=== PATIENT | female | born 1995 | race Caucasian/White ===

== ENCOUNTER → 2017-04-03 | Outpatient (CLI) | payer OTHER ==
--- NOTE | 2017-04-03 13:24 | Diagnostic Imaging Report ---
PROCEDURE: US Gallbladder. TECHNIQUE: Multiple real-time grayscale images were obtained over the right upper quadrant in various projections. INDICATION: Abdominal pain. FINDINGS: The pancreas appears unremarkable. The liver is fairly homogeneous with no focal lesion seen. There is hepatopetal flow seen in the portal vein. The CBD is 3 mm in caliber. The gallbladder demonstrates no stones or wall thickening. Sonographic Cortez sign is reportedly negative. The right kidney is 12.1 cm in length. No hydronephrosis or focal lesion. No fluid collection seen in the upper right abdomen. IMPRESSION: Unremarkable exam. Dictated by: Dictated on workstation # [id number]
== END ==
LOC: RAD 08:37
PROVIDERS: ATTEND Internal Medicine
DX: R10.13 Epigastric pain (principal)
CPT/HCPCS: 76705

== ENCOUNTER → 2017-04-19 | Outpatient (CLI) | payer OTHER ==
[~2017-04-19] MED LIST: CATHETER FLUSH 10 ML SYR IV PRN
--- NOTE | 2017-04-19 12:47 | Diagnostic Imaging Report ---
The EXAMINATION: HIDA with EF measurements Indication: Abdominal pain TECHNIQUE: After the intravenous administration of 5 mCi of Tc 99m Choletec, imaging over the abdomen was obtained. This was followed by administration of Ensure orally to stimulate intrinsic CCK secretion, followed by continued imaging with ejection fraction measured. FINDINGS: There is homogeneous uptake in the liver with prompt bile duct and gallbladder filling seen. Bowel activity is seen at 15 minutes. Based on further imaging and gallbladder area of interest activity measurements after the administration of Ensure, the gallbladder ejection fraction is estimated at 25%. IMPRESSION: 1. Normal hepatobiliary uptake and Gallbladder filling. 2. Biliary dyskinesia. Reduced gallbladder ejection fraction. Dictated by: Dictated on workstation # [id number]
== END ==
LOC: CARD 10:03
PROVIDERS: ATTEND Internal Medicine
DX: I10 Essential (primary) hypertension (principal); R07.9 Chest pain, unspecified; R06.02 Shortness of breath; M79.89 Other specified soft tissue disorders
CPT/HCPCS: 78227

== ENCOUNTER 2017-05-25 08:34 | Day surgery (SDC) | payer OTHER ==
[~2017-05-25] VITALS: Ht 157.5 cm; Wt 73.9 kg
[2017-05-25 09:00] VITALS: BP 121/87
[2017-05-25] MEDS ORDERED: metroNIDAZOLE 500 MG/100 ML IVPB (PRE-MIX) IV ONE (09:00)
[2017-05-25] MEDS ORDERED: FAMOTIDINE 20MG/2ML IV (PEPCID) IV ONE (09:00)
[2017-05-25] MEDS ORDERED: ceFAZolin 1 GM/NS 50 ML IVPB IV ONE ×2 (09:00)
[2017-05-25] MEDS ORDERED: BUP/EPI 0.5% 1:200,000 (MARCAINE) 10ML VIAL IJ ONE (09:06)
[2017-05-25 09:10] LABS: MEAN PLATELET VOLUME 10.3 FL (7.4-10.4); RED BLOOD COUNT 4.71 10^6/uL (4.35-5.85); RED CELL DISTRIBUTION WIDTH 13.7 % (10.0-14.5)
[2017-05-25] MEDS: LACTATED RINGERS 1,000 ML IV PRN ×2 (09:18→10:36)
[2017-05-25] MEDS ORDERED: fentaNYL INJECTION 100 MCG/2 ML AMP ONE ×2 (09:26→10:25)
[2017-05-25] MEDS ORDERED: SEVOFLURANE (ULTANE) 15 ML INHAL SOLN ONE ×4 (09:26→10:27)
[2017-05-25] MEDS ORDERED: proPOfol 200 MG/20 ML (DIPRIVAN) VIAL IV ONE (09:26)
[2017-05-25] MEDS ORDERED: LIDOCAINE PF 2% 5 ML (XYLOCAINE) VIAL ONE (09:26)
[2017-05-25] MEDS ORDERED: DEXAMETHASONE 10 MG/ML (DECADRON) 1 ML VIAL ONE (09:26)
[2017-05-25] MEDS ORDERED: MIDAZOLAM 2 MG/2 ML (VERSED) VIAL ONE (09:26)
[2017-05-25] MEDS ORDERED: ONDANSETRON 4 MG/2 ML (SDV) Z0FRAN ONE (09:26)
--- NOTE | 2017-05-25 09:40 | Progress Note-Pre Operative ---
Pre-Operative Progress Note H&P Reviewed The H&P was reviewed, patient examined and no changes noted. Date Seen by Provider: May 10, 2017 Time Seen by Provider: 11:20 Date H&P Reviewed: May 25, 2017 Time H&P Reviewed: 09:40 Pre-Operative Diagnosis: GB Dyskinesia VINCENT CHAN MD May 25, 2017 9:40 am
[2017-05-25] MEDS ORDERED: PHENYLEPHRINE 100 MCG/ML 10 ML (ANESTHESIA) SYR ONE (10:22)
[2017-05-25] MEDS ORDERED: NEOSTIGMINE (BLOXIVERZ ) 1 MG/1ML 10 ML VIAL ONE (10:23)
[2017-05-25] MEDS ORDERED: ROCURONIUM 50 MG/5 ML (ZEMURON) VIAL IV ONE (10:23)
[2017-05-25] MEDS ORDERED: GLYCOPYRROLATE 0.2 MG/ML (ROBINUL) 2 ML VIAL ONE (10:23)
--- NOTE | 2017-05-25 10:37 | Operative Report ---
Operative Report Date of Procedure/Surgery May 25, 2017 Surgeon (s) VINCENT CHAN MD Coat Maker (s): N/A Post-Operative Diagnosis Same Procedure Performed Robotic-assisted cholecystectomy Description of Procedure Anesthesia Type: General Estimated blood loss (mL): Minimal Specimen(s) collected/removed Gallbladder Description of the Procedure Indication for procedure: This lady presented with symptoms due to disconnection of the gallbladder, showing a reduced ejection fraction. She was offered cholecystectomy using minimally invasive technique with the robotic assistance. Informed consent was obtained after reviewing the operative details and complications of wound infection, bile leak and persistence of her symptoms. Description of the procedure: She was placed supine on the operative table and general anesthesia induced using an endotracheal tube. A gram of Ancef and 500 mg of Flagyl were administered intravenously as prophylaxis against wound infection. Sequential compression devices were placed around her legs, to minimize the risk of venous thrombosis. Abdomen was prepared and draped in the usual sterile manner. A supraumbilical incision was made and pneumoperitoneum established using a Veress needle. Intra -abdominal pressure was maintained at 15 mmHg, using carbon dioxide insufflation. It 12 mm trocar was placed and anatomy visualized 3-dimensional, high definition laparoscope associated with da Antonio system. Under direct view , I placed an 8 mm trocar over each side of the abdomen, followed by a 5 mm trocar over the left subcostal margin. The patient was then turned into reverse Trendelenburg position, with the right side tilted up. The robotic system was then in place. The fundus of the gallbladder was retracted cephalad and the infundibulum grasped with Cadiere forceps. Peritoneum overlying the loose triangle was incised using the hook cautery, delineating the cystic duct and artery. Both were divided between locking clips. Cholecystectomy was then completed using hook cautery. Gallbladder was then placed in an Endo Catch bag and removed via the supraumbilical trocar site. The fascia over this incision was closed using #1 Vicryl using the Mich Mcfadden device under direct laparoscopic view. Skin incisions were closed using 4-0 Vicryl, in a subcuticular fashion. 0.5 percent Marcaine with epinephrine was infiltrated along the incisions, both preemptively and at the conclusion of the operation. She tolerated the procedure well, was extubated in the operating room and taken to the recovery room in a stable condition. Findings of the Procedure See op report Allergies and Home Medications Allergies Coded Allergies: No Known Drug Allergies (Unverified , 05/18/17) Home Medications No Active Prescriptions or Reported Meds VINCENT CHAN MD May 25, 2017 10:37 am
[2017-05-25] MEDS ORDERED: HYDR-3812 PO (10:38)
--- NOTE | 2017-05-25 10:39 | Discharge Inst-Simple/Standard ---
Discharge Inst-Standard Discharge Medications New, Converted or Re-Newed RX: RX on Chart Patient Instructions/Follow Up Plan of Care/Instructions/FU: Band-Aids off in 48 hours. Incentive spirometry. Follow-up in 3 weeks. Activity as Tolerated: Yes Discharge Diet: No Restrictions VINCENT CHAN MD May 25, 2017 10:38 am
[2017-05-25] MEDS ORDERED: morphine INJ 10 MG/ML 1ML (SYR OR VIAL) ONE (10:43)
[2017-05-25] MEDS: morphine INJ 10 MG/ML 1ML (SYR OR VIAL) IVP PRN ×2 (10:55→11:00)
[2017-05-25] MEDS ORDERED: MEPERIDINE (DEMEROL) INJ 50 MG/ML IVP PRN (11:00)
[2017-05-25] MEDS ORDERED: HYDROmorphone (DILAUDID) 2 MG/ML VIAL IVP PRN (11:00)
[2017-05-25] MEDS ORDERED: ONDANSETRON 4 MG/2 ML (SDV) Z0FRAN IVP PRN (11:00)
[2017-05-25 11:30] VITALS: BP 126/79
[2017-05-25 12:00] VITALS: BP 110/67
[2017-05-25 12:30] VITALS: BP 109/66
[2017-05-25 13:00] VITALS: BP 109/66
== END 2017-05-25 13:00 | disposition home or self-care (01) ==
LOC: SDC 08:34
PROVIDERS: ATTEND Surgery
DX: K81.1 Chronic cholecystitis (principal)
CPT/HCPCS: 36415; 84703; 85027; 87081; 94664

== ENCOUNTER 2021-09-03 20:27 | Emergency (ER) | payer OTHER ==
[~2021-09-03] VITALS: Ht 157.5 cm; Wt 72.6 kg
[~2021-09-03 20:27] MED LIST changes: +ACHD5005 PO; -CATHETER FLUSH 10 ML SYR IV PRN
[2021-09-03] MEDS ORDERED: KETOROLAC 30 MG/ML VIAL ONE (20:43)
--- NOTE | 2021-09-03 20:43 | ED GI ---
General Stated Complaint: VOMITING Source of Information: Patient Exam Limitations: No Limitations (NUNO VANEGAS APRN) History of Present Illness Date Seen by Provider: Sep 03, 2021 Time Seen by Provider: 20:42 Initial Comments To ER with vomiting and inability to keep even water down onset this morning. She had one episode of diarrhea. She reports some epigastric abdominal discomfort as well as suprapubic lower abdominal pain. She is only urinated twice today. She has had chills. Timing/Duration: 1-2 Days Severity/Quality: Cramping Location: Generalized Abdomen Radiation: No Radiation Activities at Onset: None Associated Symptoms: Nausea/Vomiting (NUNO VANEGAS APRN) Allergies and Home Medications Allergies Coded Allergies: No Known Drug Allergies (Unverified , 05/18/17) Patient Home Medication List Home Medication List Reviewed: Yes (NUNO VANEGAS APRN) Hydrocodone Bit/Acetaminophen (Lortab 5 Mg Tablet) 1 Each Tablet, 1-2 TAB PO 4- 6HR PRN for PAIN Prescribed by: VINCENT CHAN on 05/25/17 1038 Review of Systems Review of Systems Constitutional: see HPI EENTM: No Symptoms Reported Respiratory: No Symptoms Reported Cardiovascular: No Symptoms Reported Gastrointestinal: See HPI, Abdominal Pain, Diarrhea, Nausea Genitourinary: No Symptoms Reported Musculoskeletal: no symptoms reported Skin: no symptoms reported Psychiatric/Neurological: No Symptoms Reported Endocrine: No Symptoms Reported (NUNO VANEGAS APRN) Past Wfdqodw-Cyvcgj-Kpqicm Hx Immunizations Up To Date Tetanus Booster (TDap): Unknown (NUNO VANEGAS APRN) Seasonal Allergies Seasonal Allergies: No (NUNO VANEGAS APRN) Past Medical History Reproductive Disorders: No Female Reproductive Disorders: Denies Sexually Transmitted Disease: No HIV/AIDS: No Gastroesophageal Reflux, Gall Bladder Disease Loss of Vision: Bilateral Hearing Impairment: Denies Adverse Reaction/Blood Tranf: No (N/A) (NUON VANEGAS APRN) Physical Exam Vital Signs Vital Signs - First Documented 09/03/21 20:32 Temp 36.2 Pulse 106 Resp 20 B/P (MAP) 138/95 (109) Pulse Ox 100 O2 Delivery Room Air (SOFIE,GRICELDA K DO) Vital Signs Capillary Refill : (NUNO VANEGAS APRN) Height/Weight/BMI Height: 5'2.00" Weight: 163lbs. 0.0oz. 73.611805lu; 29.8 BMI Method: General Appearance: WD/WN, no apparent distress HEENT: PERRL/EOMI, normal ENT inspection Neck: non-tender, full range of motion Respiratory: no respiratory distress, no accessory muscle use Cardiovascular: no murmur, tachycardia Gastrointestinal: normal bowel sounds, soft, tenderness Extremities: normal range of motion, non-tender Neurologic/Psychiatric: alert, normal mood/affect, oriented x 3 Skin: normal color, warm/dry (NUNO VANEGAS APRN) Progress/Results/Core Measures Results/Orders Lab Results Laboratory Tests Test 09/03/21 20:41 09/03/21 20:46 09/03/21 20:50 09/03/21 20:52 Range/Units White Blood Count 12.4 H 4.3-11.0 10^3/uL Red Blood Count 4.81 3.80-5.11 10^6/uL Hemoglobin 13.5 11.5-16.0 g/dL Hematocrit 41 35-52 % Mean Corpuscular Volume 86 80-99 fL Mean Corpuscular Hemoglobin 28 25-34 pg Mean Corpuscular Hemoglobin Concent 33 32-36 g/dL Red Cell Distribution Width 13.2 10.0-14.5 % Platelet Count 322 130-400 10^3/uL Mean Platelet Volume 10.0 9.0-12.2 fL Immature Granulocyte % (Auto) 0 % Neutrophils (%) (Auto) 93 H 42-75 % Lymphocytes (%) (Auto) 4 L 12-44 % Monocytes (%) (Auto) 3 0-12 % Eosinophils (%) (Auto) 0 0-10 % Basophils (%) (Auto) 0 0-10 % Neutrophils # (Auto) 11.5 H 1.8-7.8 10^3/uL Lymphocytes # (Auto) 0.5 L 1.0-4.0 10^3/uL Monocytes # (Auto) 0.3 0.0-1.0 10^3/uL Eosinophils # (Auto) 0.0 0.0-0.3 10^3/uL Basophils # (Auto) 0.0 0.0-0.1 10^3/uL Immature Granulocyte # (Auto) 0.0 0.0-0.1 10^3/uL Neutrophils % (Manual) 95 % Lymphocytes % (Manual) 5 % Blood Morphology Comment NORMAL Sodium Level 138 135-145 MMOL/L Potassium Level 4.1 3.6-5.0 MMOL/L Chloride Level 107 98-107 MMOL/L Carbon Dioxide Level 19 L 21-32 MMOL/L Anion Gap 12 5-14 MMOL/L Blood Urea Nitrogen 14 7-18 MG/DL Creatinine 0.70 0.60-1.30 MG/DL Estimat Glomerular Filtration Rate 124 BUN/Creatinine Ratio 20 Glucose Level 106 H 70-105 MG/DL Calcium Level 9.3 8.5-10.1 MG/DL Corrected Calcium 9.1 8.5-10.1 MG/DL Total Bilirubin 0.7 0.1-1.0 MG/DL Aspartate Amino Transf (AST/SGOT) 15 5-34 U/L Alanine Aminotransferase (ALT/SGPT) 11 0-55 U/L Alkaline Phosphatase 53 40-136 U/L Total Protein 7.7 6.4-8.2 GM/DL Albumin 4.3 3.2-4.5 GM/DL Serum Test, Qualitative NEGATIVE NEGATIVE Lipase 10 8-78 U/L Urine Color ORANGE Urine Clarity CLOUDY Urine pH 6.0 5-9 Urine Specific [place] >=1.030 1.016-1.022 Urine Protein NEGATIVE NEGATIVE Urine Glucose (UA) NEGATIVE NEGATIVE Urine Ketones 2+ H NEGATIVE Urine Nitrite NEGATIVE NEGATIVE Urine Bilirubin NEGATIVE NEGATIVE Urine Urobilinogen 0.2 < = 1.0 MG/DL Urine Leukocyte Esterase NEGATIVE NEGATIVE Urine RBC (Auto) TRACE-I H NEGATIVE Urine RBC 2-5 H /HPF Urine WBC 2-5 /HPF Urine Crystals PRESENT H /LPF Urine Amorphous Sediment FEW ROBERTO URATES H /LPF Urine Bacteria TRACE /HPF Urine Casts NONE /LPF Urine Mucus SMALL H /LPF Urine Culture Indicated NO Influenza Type A (RT-PCR) Not Detected Not Detecte Influenza Type B (RT-PCR) Not Detected Not Detecte SARS-CoV-2 RNA (RT-PCR) Detected H Not Detecte (GRICELDA CARRIZALES DO) Medications Given in ED Current Medications Medications Dose Ordered Sig/Desmond Route Start Time Stop Time Status Last Admin Dose Admin Ketorolac Tromethamine 15 mg ONCE ONCE IVP 09/03/21 20:45 09/03/21 20:46 DC 09/03/21 20:46 15 MG Ondansetron HCl 8 mg ONCE ONCE IVP 09/03/21 20:45 09/03/21 20:46 DC 09/03/21 20:45 8 MG (GRICELDA CARRIZALES DO) Vital Signs/I&O 09/03/21 09/03/21 20:32 22:00 Temp 36.2 Pulse 106 78 Resp 20 20 B/P (MAP) 138/95 (109) 108/72 Pulse Ox 100 100 O2 Delivery Room Air Room Air (GRICELDA CARRIZALES DO) Departure Communication (Admissions) 0-he feels a lot better. Covid test was positive though she states she had a positive at-home test the second week of July. She is fully vaccinated and booster. It would be unlikely to still test positive from that infection though it would also be unlikely to be reinfected after having had it 1.[address] Either [address] she feels much better and looks good. We are discharging to home. (NUNO VANEGAS APRN) Impression Primary Impression: COVID-19 Additional Impression: Nausea, vomiting, and diarrhea Disposition: HOME, SELF-CARE Condition: Stable Departure-Patient Inst. Decision time for Depature: 21:51 (NUNO VANEGAS APRN) Referrals: NO,LOCAL PHYSICIAN (PCP/Family) Primary Care Physician Patient Instructions: Nausea and Vomiting, Adult (DC), COVID-19 ED Add. Discharge Instructions: 1. Tylenol and ibuprofen for body aches fever control. Take the nausea med ication as directed. Return to ER for any concerns. Work/School Note: Work Release Form Date Seen in the Emergency Department: Sep 03, 2021 Return to Work: Sep 10, 2021 ATTENDING PHYSICIAN NOTE: I WAS PHYSICALLY PRESENT ER PHYSICIAN WHEN THIS PATIENT WAS IN ER, BUT I WAS NOT INVOLVED IN ANY DECISION MAKING OR ANY CARE OF THIS PATIENT. (GRICELDA CARRIZALES DO) NUNO VANEGAS APRN Sep 03, 2021 20:43 GRICELDA CARRIZALES DO Sep 03, 2021 22:34
[2021-09-03] MEDS ORDERED: LACTATED RINGERS 1,000 ML IV SCH (20:45)
[2021-09-03] MEDS ORDERED: ONDANSETRON 4 MG/2 ML (SDV) Z0FRAN IVP ONE (20:45)
[2021-09-03] MEDS ORDERED: KETOROLAC 30 MG/ML VIAL IVP ONE (20:45)
[2021-09-03 20:49] LABS: BASOPHILS % (AUTO) 0 % (0-10); EOSINOPHILS % (AUTO) 0 % (0-10); HEMATOCRIT 41 % (35-52); HEMOGLOBIN 13.5 g/dL (11.5-16.0); LYMPHOCYTES # (AUTO) 0.5 10^3/uL (1.0-4.0); LYMPHOCYTES % (AUTO) 4 % (12-44); MEAN CORPUSCULAR HEMOGLOBIN 28 pg (25-34); MEAN CORPUSCULAR HGB CONC 33 g/dL (32-36); MEAN CORPUSCULAR VOLUME 86 fL (80-99); MONOCYTES # (AUTO) 0.3 10^3/uL (0.0-1.0); MONOCYTES % (AUTO) 3 % (0-12); NEUTROPHILS # (AUTO) 11.5 10^3/uL (1.8-7.8); NEUTROPHILS % (AUTO) 93 % (42-75); PLATELET COUNT 322 10^3/uL (130-400); WHITE BLOOD COUNT 12.4 10^3/uL (4.3-11.0)
[2021-09-03 20:53] LABS: BILIRUBIN,URINE NEGATIVE (NEGATIVE); CLARITY,URINE CLOUDY; COLOR,URINE ORANGE; GLUCOSE, URINE (UA) NEGATIVE (NEGATIVE); KETONES,URINE 2+ (NEGATIVE); LEUKOCYTE ESTERASE ,URINE NEGATIVE (NEGATIVE); NITRITE,URINE NEGATIVE (NEGATIVE); PROTEIN,URINE NEGATIVE (NEGATIVE)
[2021-09-03 21:05] LABS: BACTERIA,URINE TRACE /HPF
[2021-09-03 21:06] LABS: AMORPHOUS SEDIMENT,UR FEW AMOR URATES /LPF
[2021-09-03 21:06] LABS: ALBUMIN 4.3 GM/DL (3.2-4.5); POTASSIUM 4.1 MMOL/L (3.6-5.0)
[2021-09-03 21:07] LABS: CALCIUM 9.3 MG/DL (8.5-10.1)
[2021-09-03 21:09] LABS: TOTAL PROTEIN 7.7 GM/DL (6.4-8.2)
[2021-09-03 21:10] LABS: BILIRUBIN,TOTAL 0.7 MG/DL (0.1-1.0)
[2021-09-03 21:12] LABS: CREATININE SERUM 0.7 MG/DL (0.60-1.30)
[2021-09-03 21:29] LABS: LYMPHOCYTES % (MANUAL) 5 %; NEUTROPHILS % (MANUAL) 95 %; RBC MORPH NORMAL
[2021-09-03] MEDS ORDERED: RX-ONDANSETRON 4 MG ODT (ZOFRAN) PPK #4 PO STA (21:52)
[2021-09-03 22:00] VITALS: BP 108/72
== END 2021-09-03 22:00 | disposition home or self-care (01) ==
LOC: EDUNIT# 20:27 → ER 20:31
DX: U07.1 COVID-19 (principal); Z32.02 Encounter for pregnancy test, result negative
CPT/HCPCS: 36415; 80053; 81000; 83690; 84703; 85007; 85027; 87636